=== PATIENT | female | born 1945 | race Caucasian/White ===

== ENCOUNTER 2024-10-23 11:24 | Day surgery (SDC) | payer MEDICARE ==
[~2024-10-23] VITALS: Ht 157.5 cm; Wt 104.8 kg
[~2024-10-23 11:24] MED LIST: ASPI81TA26 PO; ELIQ5TAB PO; ENTR1TAB7 PO; HYDR-3490 PO; LR 1,000 ML IV SCH; METO1TAB32 PO; METO1TAB7 PO; REPA140I2 SC; VITA100093 PO
[2024-10-23] MEDS: TETRACAINE 0.5% OPHTH SOLN 4ML OS SCH (13:51)
[2024-10-23] MEDS: FLURBIPROFEN 0.03% OPHTH SOLN 2.5 ML OS SCH (13:51)
[2024-10-23] MEDS: CYCLOPENTOLATE 1% OPHTH SOLN 2 ML BTL OS SCH (13:51)
[2024-10-23] MEDS ORDERED: MIDAZOLAM INJ 2 MG/2 ML VIAL As Ordered ONE (15:05)
[2024-10-23] MEDS ORDERED: LABETALOL 100 MG/20 ML VIAL As Ordered ONE (15:21)
[2024-10-23] MEDS: LIDOCAINE 1% SDV 5 ML VIAL As Ordered ONE (15:22)
[2024-10-23] MEDS: CEFUROXIME 1 MG/0.1 ML INTRACAMERAL INJ As Ordered ONE (15:22)
[2024-10-23 15:38] VITALS: BP 145/71; TEMP 97.2; O2SAT 96
== END 2024-10-23 16:05 | disposition home or self-care (01) ==
LOC: M SDC 11:24
PROVIDERS: ATTEND Ophthalmology
DX: H25.12 Age-related nuclear cataract, left eye (principal); I10 Essential (primary) hypertension; I25.10 Atherosclerotic heart disease of native coronary artery without angina pectoris; E78.00 Pure hypercholesterolemia, unspecified; Z79.82 Long term (current) use of aspirin; Z79.01 Long term (current) use of anticoagulants; Z79.899 Other long term (current) drug therapy; Z95.5 Presence of coronary angioplasty implant and graft; K21.9 Gastro-esophageal reflux disease without esophagitis; Z88.8 Allergy status to other drugs, medicaments and biological substances; Z88.5 Allergy status to narcotic agent; Z88.0 Allergy status to penicillin; Z88.6 Allergy status to analgesic agent
CPT/HCPCS: 66984; J0697; J1920; J2250; J3010; V2632